=== PATIENT | female | born 1990 | race African-American/Black ===

== ENCOUNTER 2016-07-21 04:47 | Emergency (ER) | payer SELFPAY ==
[2016-07-21 04:56] VITALS: BP 124/66
--- NOTE | 2016-07-21 05:15 | EDM.PDOC ---
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 She presented to the emergency department this morning because of increased pain. She states that she has an appointment to have the cyst drained. - Related Data Allergies/ADRs: Allergies Allergy/AdvReac Type Severity Reaction Status Date / Time latex Allergy Hives Verified 07/21/16 04:50 Latex, Natural Rubber Allergy Hives Verified 07/21/16 04:50 Home Meds: Home Meds Metronidazole [IJD: metroNIDAZOLE] 1 tab PO TID 07/21/16 [History] Past Medical History - Past Health History Medical/Surgical History: Denies Medical/Surgical History Other OB/BYN History: Bartolin's Cyst - Infectious Disease History Infectious Disease History: Reports: Chicken pox Social & Family History - Family History Family Medical History: Noncontributory - Tobacco Use Smoking Status *Q: Never Smoker Second Hand Smoke Exposure: No - Caffeine Use Caffeine Use: Reports: Soda Caffeine Use Comment: 2drinks/day - Recreational Drug Use Recreational Drug Use: No ED ROS GENERAL - Review of Systems Review Of Systems: See Below Constitutional: Reports: other (She has significant pain and discomfort.). Denies: fever (He is uncertain if she has had a fever.) Respiratory: Denies: shortness of breath, sputum Cardiovascular: Denies: Chest pain, Edema GI/Abdominal: Denies: Abdominal pain, Vomiting ED EXAM, RENAL/ - Physical Exam Exam: See Below General Appearance: alert, no apparent distress Respiratory/Chest: no respiratory distress (Female) Exam: Other (On examination of the external genitalia I note that there is a firmness of the right labium. This is extensive covering a large part of the right labium with swelling and tenderness and likely some deeper fluctuance.) Course - Vital Signs Last Recorded V/S: Last Vital Signs Temp 98.2 F 07/21/16 04:51 Pulse 102 H 07/21/16 04:51 Resp 19 07/21/16 04:51 BP 124/66 07/21/16 04:51 Pulse Ox 98 07/21/16 04:51 Departure - Departure Time of Disposition: 05:16 Disposition: Home, Self-Care 01 Clinical Impression: Labial abscess Forms: ED Department Discharge Additional Instructions: Percocet 10 325 one by mouth now and a prescription for Percocet 10/325 one every 4 hours when necessary pain dispensed 20. Staff in the emergency department will attempt to help her get into see Dr. Dominguez sometime later today. I told the patient I do not feel that this suspected abscess is amenable to easy intervention in the emergency department.
[2016-07-21] MEDS ORDERED: Acetaminophen/oxyCODONE 325-10 MG Tab PO ONE (05:18)
== END 2016-07-21 05:30 | disposition home or self-care (01) ==
LOC: MW.ED 04:47 → MERGE 04:47 → MW.ED 05:30
DX: N76.4 Abscess of vulva (principal); Z91.040 Latex allergy status; Z79.899 Other long term (current) drug therapy
CPT/HCPCS: 99283; A9270

== ENCOUNTER 2016-11-01 08:47 | Emergency (ER) | payer SELFPAY ==
--- NOTE | 2016-11-01 10:17 | EDM.PDOC ---
ED HPI GENERAL MEDICAL PROBLEM - General Chief Complaint: Abdominal Pain Stated Complaint: STOMACH PAIN Time Seen by Provider: 11/01/16 09:39 Source of Information: Reports: Patient History Limitations: Reports: No Limitations - History of Present Illness INITIAL COMMENTS - FREE TEXT/NARRATIVE: History of present illness: [] Patient states that she's had swelling and "movement" in her left abdomen for a few weeks, last night she developed pain in her left abdomen into her vagina. She denies any discharge or bleeding at this time. She's had several tests and ultrasounds of her abdomen in the women[facility] clinic and states she is not . She is not convinced of this is she states she is in TV shows these tests can be negative but she can still be . Review of systems: As per history of present illness and below otherwise all systems reviewed and negative. Past medical history: As per history of present illness and as reviewed below otherwise noncontributory. Surgical history: As per history of present illness and as reviewed below otherwise noncontributory. Social history: No reported history of drug or alcohol abuse. Family history: As per history of present illness and as reviewed below otherwise noncontributory. Physical exam: General: Well developed, well nourished in NAD HEENT: Atraumatic, normocephalic, pupils reactive, negative for conjunctival pallor or scleral icterus, mucous membranes moist, throat clear, neck supple, nontender, trachea midline. Lungs: Clear to auscultation, breath sounds equal bilaterally, chest nontender. Heart: S1S2, regular, negative for clicks, rubs, or JVD. Abdomen: Soft bowel sounds Soft, nondistended, left lower quadrant tenderness no rebound or guarding. Do not appreciate any masses in her left abdomen however patient notes that she feels one palpable under the skin is moving. Negative for masses or hepatosplenomegaly. Negative for costovertebral tenderness. Pelvis: Stable nontender. Genitourinary: Deferred. Rectal: Deferred. Extremities: Atraumatic, negative for cords or calf pain. Neurovascular unremarkable. Neuro: Awake, alert, oriented. Cranial nerves II through XII unremarkable. Cerebellum unremarkable. Motor and sensory unremarkable throughout. Exam nonfocal. Diagnostics: [] UA shows UTI hCG is negative Therapeutics: [] Impression: [] UTI Plan: [] Bactrim twice a day for 10 days followup with PMD return if symptoms worsen or change Definitive disposition and diagnosis as appropriate pending reevaluation and review of above. abdomen Pain Score (Numeric/FACES): 9 - Related Data Allergies Allergy/AdvReac Type Severity Reaction Status Date / Time influenza virus vaccine, Allergy Cannot Verified 11/01/16 09:40 specific Remember [Influenza Virus Vacc,Specific] latex Allergy Hives Verified 11/01/16 09:40 Latex, Natural Rubber Allergy Other Verified 11/01/16 09:40 Home Meds: Home Meds Control Pill 1 tab PO DAILY 10/29/14 [History] Amoxicillin/Clavulanate K [Augmentin 875 MG/125 MG] 02/27/16 [History] Hydrocodone/Acetaminophen [[place] 5-325] 02/27/16 [History] Metronidazole [IJD: metroNIDAZOLE] 1 tab PO TID 07/21/16 [History] Sulfamethoxazole/Trimethoprim [Bactrim Ds Tablet] 1 each PO BID #20 tablet 11/01 [Rx] Past Medical History - Past Health History Medical/Surgical History: Denies Medical/Surgical History HEENT History: Reports: None Cardiovascular History: Reports: None Respiratory History: Reports: None Gastrointestinal History: Reports: None Genitourinary History: Reports: None 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: Other OB/BYN History: Bartolin's Cyst Musculoskeletal History: Reports: None Neurological History: Reports: None Psychiatric History: Reports: None Endocrine/Metabolic History: Reports: None Hematologic History: Reports: Anemia, Blood Transfusion(s) Immunologic History: Reports: None Oncologic (Cancer) History: Reports: None Dermatologic History: Reports: None - Infectious Disease History Infectious Disease History: Reports: Chicken Pox, None - Past Surgical History Head Surgeries/Procedures: Reports: None HEENT Surgical History: Reports: None Cardiovascular Surgical History: Reports: None Female Surgical History: Reports: None Oncologic Surgical History: Reports: None Social & Family History - Family History Family Medical History: Noncontributory - Tobacco Use Smoking Status *Q: Never Smoker Second Hand Smoke Exposure: No - Caffeine Use Caffeine Use: Reports: Coffee Caffeine Use Comment: 3 cups daily - Alcohol Use Days Per Week of Alcohol Use: 0 - Recreational Drug Use Recreational Drug Use: No ED ROS GENERAL - Review of Systems Review Of Systems: See Below (See history of present illness) ED EXAM, GI/ABD - Physical Exam Exam: See Below (See history of present illness) Course - Vital Signs Last Recorded V/S: Last Vital Signs Temp 37.0 C 11/01/16 09:05 Pulse 94 11/01/16 09:05 Resp 16 11/01/16 09:05 BP 126/73 11/01/16 09:05 Pulse Ox 98 11/01/16 09:05 - Orders/Labs/Meds Orders: Active Orders 24 hr Category Date Time Status CHLAMYDIA TRACHOMATIS/GC AMPLF Stat Lab 11/01/16 10:18 Ordered COMPREHENSIVE METABOLIC PN,CMP [CHEM] Stat Lab 11/01/16 10:25 Received LIPASE [CHEM] Stat Lab 11/01/16 10:25 Received Labs: Laboratory Tests 11/01/16 11/01/16 11/01/16 Range/Units 09:38 09:45 10:25 WBC 10.24 (4.0-11.0) K/uL RBC 5.31 (4.30-5.90) M/uL Hgb 10.2 L (12.0-16.0) g/dL Hct 34.8 L (36.0-46.0) % MCV 65.5 L (80.0-98.0) fL MCH 19.2 L (27.0-32.0) pg MCHC 29.3 L (31.0-37.0) g/dL RDW Std Deviation 48.3 (28.0-62.0) fl RDW Coeff of Danitza 21 H (11.0-15.0) % Plt Count 301 (150-400) K/uL MPV 9.20 (7.40-12.00) fL Neut % (Auto) 66.4 (48.0-80.0) % Lymph % (Auto) 20.1 (16.0-40.0) % [place] % (Auto) 9.7 (0.0-15.0) % Eos % (Auto) 3.6 (0.0-7.0) % Baso % (Auto) 0.2 (0.0-1.5) % Neut # (Auto) 6.8 H (1.4-5.7) K/uL Lymph # (Auto) 2.1 (0.6-2.4) K/uL [place] # (Auto) 1.0 H (0.0-0.8) K/uL Eos # (Auto) 0.4 (0.0-0.7) K/uL Baso # (Auto) 0.0 (0.0-0.1) K/uL Nucleated RBC % 0.0 /100WBC Nucleated RBCs # 0 K/uL Urine Color YELLOW Urine Appearance SLT CLOUDY Urine pH 5.5 (5.0-8.0) Ur Specific [place] 1.010 (1.001-1.035) Urine Protein NEGATIVE (NEGATIVE) mg/dL Urine Glucose (UA) NEGATIVE (NEGATIVE) mg/dL Urine Ketones NEGATIVE (NEGATIVE) mg/dL Urine Occult Blood TRACE-INTACT (NEGATIVE) Urine Nitrite NEGATIVE (NEGATIVE) Urine Bilirubin NEGATIVE (NEGATIVE) Urine Urobilinogen 0.2 (<2.0) EU/dL Ur Leukocyte Esterase MODERATE (NEGATIVE) Urine RBC 1-3 (0-2/HPF) Urine WBC 50-60 (0-5/HPF) Ur Epithelial Cells OCCASIONAL (NONE-FEW) Urine Bacteria FEW (NEGATIVE) Urine Mucus LIGHT (NONE-MOD) Urine HCG, Qual NEGATIVE (NEGATIVE) Departure - Departure Time of Disposition: 10:58 Disposition: Home, Self-Care 01 Condition: good Clinical Impression: UTI (urinary tract infection) Qualifiers: Urinary tract infection type: site unspecified Hematuria presence: without hematuria Qualified Code(s): N39.0 - Urinary tract infection, site not specified - Discharge Information Prescriptions: Sulfamethoxazole/Trimethoprim [Bactrim Ds Tablet] 1 each PO BID #20 tablet Forms: ED Department Discharge Additional Instructions: The following information is given to patients seen in the emergency department who are being discharged to home. This information is to outline your options for follow-up care. We provide all patients seen in our emergency department with a follow-up referral. The need for follow-up, as well as the timing and circumstances, are variable depending upon the specifics of your emergency department visit. If you don't have a primary care physician on staff, we will provide you with a referral. We always advise you to contact your personal physician following an emergency department visit to inform them of the circumstance of the visit and for follow-up with them and/or the need for any referrals to a consulting specialist. The emergency department will also refer you to a specialist when appropriate. This referral assures that you have the opportunity for follow-up care with a specialist. All of these measure are taken in an effort to provide you with optimal care, which includes your follow-up. Under all circumstances we always encourage you to contact your private physician who remains a resource for coordinating your care. When calling for follow-up care, please make the office aware that this follow-up is from your recent emergency room visit. If for any reason you are refused follow-up, please contact the [facility] Emergency Department at and asked to speak to the emergency department charge nurse. Bactrim twice a day for 10 days, increase fluids, Tylenol Motrin for pain, followup with primary care physician return to ER if any symptoms change or worsen [facility] [address] [place] [id number] - My Orders Last 24 Hours: My Active Orders 11/01/16 10:18 CHLAMYDIA TRACHOMATIS/GC AMPLF Stat 11/01/16 10:25 COMPREHENSIVE METABOLIC PN,CMP [CHEM] Stat LIPASE [CHEM] Stat - Assessment/Plan Last 24 Hours: My Active Orders 11/01/16 10:18 CHLAMYDIA TRACHOMATIS/GC AMPLF Stat 11/01/16 10:25 COMPREHENSIVE METABOLIC PN,CMP [CHEM] Stat LIPASE [CHEM] Stat
[2016-11-01 11:00] LABS: CHLORIDE,CL 108 mmol/L (98-110); SODIUM,NA 137 mmol/L (136-146)
[2016-11-01 11:15] VITALS: BP 119/75
== END 2016-11-01 11:10 | disposition home or self-care (01) ==
LOC: MW.ED 08:47
DX: N39.0 Urinary tract infection, site not specified (principal); Z79.899 Other long term (current) drug therapy; Z88.7 Allergy status to serum and vaccine; Z91.040 Latex allergy status; Z86.2 Personal history of diseases of the blood and blood-forming organs and certain disorders involving the immune mechanism
CPT/HCPCS: 36415; 80053; 81001; 81025; 83690; 85025; 87491; 87591; 99283

== ENCOUNTER 2017-04-11 09:18 | Emergency (ER) | payer OTHER ==
[2017-04-11] MEDS ORDERED: Sodium Chloride 0.9% 1,000 ML IV ONE (09:33)
[2017-04-11] MEDS ORDERED: Ondansetron 4 MG/2 ML SDV IVPUSH ONE (09:33)
[2017-04-11] MEDS ORDERED: Ketorolac 30 MG/ML SDV IVPUSH ONE (09:33)
--- NOTE | 2017-04-11 09:33 | EDM.PDOC ---
ED HPI GENERAL MEDICAL PROBLEM - General Chief Complaint: General Stated Complaint: MIGRAINE Time Seen by Provider: 04/11/17 09:33 Source of Information: Reports: Patient - History of Present Illness INITIAL COMMENTS - FREE TEXT/NARRATIVE: HISTORY AND PHYSICAL: History of present illness: [Patient presents with 4 out of 10 right unilateral headache with mild nausea she has had a couple episodes of vomiting and light sensitivity She notes that she "had 4-5 watery stools per day on Wednesday she has not taken anything for this remained any diet adjustment No fever or chills sweats no chest pain shortness breath dizziness or palpitation no urine symptoms ] Review of systems: As per history of present illness and below otherwise all systems reviewed and negative. Past medical history: As per history of present illness and as reviewed below otherwise noncontributory. Surgical history: As per history of present illness and as reviewed below otherwise noncontributory. Social history: No reported history of drug or alcohol abuse. Family history: As per history of present illness and as reviewed below otherwise noncontributory. Physical exam: HEENT: Atraumatic, normocephalic, pupils reactive, negative for conjunctival pallor or scleral icterus, mucous membranes moist, throat clear, neck supple, nontender, trachea midline. Dry lips and tongue Lungs: Clear to auscultation, breath sounds equal bilaterally, chest nontender. Heart: S1S2, regular, negative for clicks, rubs, or JVD. Abdomen: Soft, nondistended, nontender. Negative for masses or hepatosplenomegaly. Negative for costovertebral tenderness. Pelvis: Stable nontender. Genitourinary: Deferred. Rectal: Deferred. Extremities: Atraumatic, negative for cords or calf pain. Neurovascular unremarkable. Neuro: Awake, alert, oriented. Cranial nerves II through XII unremarkable. Cerebellum unremarkable. Motor and sensory unremarkable throughout. Exam nonfocal. Diagnostics: [CBC CMP UA hCG Influenza A ] Therapeutics: [1 L normal saline bolus Zofran 8 mg IV Toradol 30 mg IV ] Impression: UTI [Headache Mild dehydration Nausea vomiting diarrhea Viral syndrome] Definitive disposition and diagnosis as appropriate pending reevaluation and review of above. headache Pain Score (Numeric/FACES): 9 - Related Data Allergies Allergy/AdvReac Type Severity Reaction Status Date / Time influenza virus vaccine, Allergy Cannot Verified 04/11/17 09:32 specific Remember [Influenza Virus Vacc,Specific] latex Allergy Hives Verified 04/11/17 09:32 Latex, Natural Rubber Allergy Other Verified 04/11/17 09:32 Home Meds: Home Meds medroxyPROGESTERone [Provera] 10 mg PO DAILY 04/11/17 [History] metFORMIN HCl [Metformin HCl ER] 500 mg PO DAILY 04/11/17 [History] Past Medical History - Past Health History Medical/Surgical History: Denies Medical/Surgical History HEENT History: Reports: None Cardiovascular History: Reports: None Respiratory History: Reports: None Gastrointestinal History: Reports: None Genitourinary History: Reports: None 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 OB/BYN History: Bartolin's Cyst Musculoskeletal History: Reports: None Neurological History: Reports: None Psychiatric History: Reports: None Endocrine/Metabolic History: Reports: None Hematologic History: Reports: Anemia, Blood Transfusion(s) Immunologic History: Reports: None Oncologic (Cancer) History: Reports: None Dermatologic History: Reports: None - Infectious Disease History Infectious Disease History: Reports: Chicken Pox, None - Past Surgical History Head Surgeries/Procedures: Reports: None HEENT Surgical History: Reports: None Cardiovascular Surgical History: Reports: None Female Surgical History: Reports: None Oncologic Surgical History: Reports: None Social & Family History - Family History Family Medical History: Noncontributory - Tobacco Use Smoking Status *Q: Never Smoker Second Hand Smoke Exposure: No - Caffeine Use Caffeine Use: Reports: Coffee Caffeine Use Comment: 3 cups daily - Alcohol Use Days Per Week of Alcohol Use: 0 - Recreational Drug Use Recreational Drug Use: No ED ROS GENERAL - Review of Systems Review Of Systems: ROS reveals no pertinent complaints other than HPI. ED EXAM, GENERAL - Physical Exam Exam: See Below Course - Vital Signs Last Recorded V/S: Last Vital Signs Temp 97.8 F 04/11/17 09:33 Pulse 86 04/11/17 09:33 Resp 18 04/11/17 09:33 BP 135/58 L 04/11/17 09:33 Pulse Ox 97 04/11/17 09:33 - Orders/Labs/Meds Orders: Active Orders 24 hr Category Date Time Status CULTURE URINE [RM] Stat Lab 04/11/17 10:31 Uncollected Sodium Chloride 0.9% [Normal Saline] 1,000 ml Med 04/11/17 09:33 Active IV STAT Medication Orders Sodium Chloride (Normal Saline) 1,000 mls @ 999 mls/hr IV STAT ONE Stop: 04/11/17 10:33 Last Admin: 04/11/17 09:52 Dose: 999 mls/hr Labs: Laboratory Tests 04/11/17 04/11/17 04/11/17 Range/Units 09:35 09:35 09:49 WBC 7.38 (4.0-11.0) K/uL RBC 4.91 (4.30-5.90) M/uL Hgb 11.2 L (12.0-16.0) g/dL Hct 36.6 (36.0-46.0) % MCV 74.5 L (80.0-98.0) fL MCH 22.8 L (27.0-32.0) pg MCHC 30.6 L (31.0-37.0) g/dL RDW Std Deviation 50.6 (28.0-62.0) fl RDW Coeff of Danitza 19 H (11.0-15.0) % Plt Count 277 (150-400) K/uL MPV 9.50 (7.40-12.00) fL Neut % (Auto) 53.7 (48.0-80.0) % Lymph % (Auto) 29.4 (16.0-40.0) % [place] % (Auto) 8.9 (0.0-15.0) % Eos % (Auto) 7.6 H (0.0-7.0) % Baso % (Auto) 0.4 (0.0-1.5) % Neut # (Auto) 4.0 (1.4-5.7) K/uL Lymph # (Auto) 2.2 (0.6-2.4) K/uL [place] # (Auto) 0.7 (0.0-0.8) K/uL Eos # (Auto) 0.6 (0.0-0.7) K/uL Baso # (Auto) 0.0 (0.0-0.1) K/uL Nucleated RBC % 0.0 /100WBC Nucleated RBCs # 0 K/uL Sodium (136-146) mmol/L Potassium (3.5-5.1) mmol/L Chloride (98-110) mmol/L Carbon Dioxide (21-31) mmol/L BUN (6.0-23.0) mg/dL Creatinine (0.6-1.5) mg/dL Est Cr Clr Drug Dosing mL/min Estimated GFR (MDRD) ml/min Glucose (60-110) mg/dL Calcium (8.8-10.8) mg/dL Total Bilirubin (0.1-1.5) mg/dL AST (5-40) IU/L ALT (8-54) IU/L Alkaline Phosphatase (40-150) Total Protein (6.0-8.0) g/dL Albumin (3.5-5.0) g/dL Globulin (2.0-3.5) g/dL Albumin/Globulin Ratio (1.3-2.8) Urine Color YELLOW Urine Appearance CLOUDY Urine pH 8.5 H (5.0-8.0) Ur Specific [place] 1.010 (1.001-1.035) Urine Protein NEGATIVE (NEGATIVE) mg/dL Urine Glucose (UA) NEGATIVE (NEGATIVE) mg/dL Urine Ketones NEGATIVE (NEGATIVE) mg/dL Urine Occult Blood SMALL H (NEGATIVE) Urine Nitrite NEGATIVE (NEGATIVE) Urine Bilirubin NEGATIVE (NEGATIVE) Urine Urobilinogen 0.2 (<2.0) EU/dL Ur Leukocyte Esterase LARGE (NEGATIVE) Urine RBC 2-3 (0-2/HPF) Urine WBC 5-8 (0-5/HPF) Ur Epithelial Cells FEW (NONE-FEW) Amorphous Sediment LIGHT (NEGATIVE) Urine Bacteria 1+ H (NEGATIVE) Urine Mucus NOT SEEN (NONE-MOD) Urine HCG, Qual NEGATIVE (NEGATIVE) 04/11/17 Range/Units 09:49 WBC (4.0-11.0) K/uL RBC (4.30-5.90) M/uL Hgb (12.0-16.0) g/dL Hct (36.0-46.0) % MCV (80.0-98.0) fL MCH (27.0-32.0) pg MCHC (31.0-37.0) g/dL RDW Std Deviation (28.0-62.0) fl RDW Coeff of Danitza (11.0-15.0) % Plt Count (150-400) K/uL MPV (7.40-12.00) fL Neut % (Auto) (48.0-80.0) % Lymph % (Auto) (16.0-40.0) % [place] % (Auto) (0.0-15.0) % Eos % (Auto) (0.0-7.0) % Baso % (Auto) (0.0-1.5) % Neut # (Auto) (1.4-5.7) K/uL Lymph # (Auto) (0.6-2.4) K/uL [place] # (Auto) (0.0-0.8) K/uL Eos # (Auto) (0.0-0.7) K/uL Baso # (Auto) (0.0-0.1) K/uL Nucleated RBC % /100WBC Nucleated RBCs # K/uL Sodium 141 (136-146) mmol/L Potassium 3.5 (3.5-5.1) mmol/L Chloride 110 (98-110) mmol/L Carbon Dioxide 22 (21-31) mmol/L BUN 9 (6.0-23.0) mg/dL Creatinine 0.7 (0.6-1.5) mg/dL Est Cr Clr Drug Dosing 121.78 mL/min Estimated GFR (MDRD) > 60.0 ml/min Glucose 122 H (60-110) mg/dL Calcium 8.9 (8.8-10.8) mg/dL Total Bilirubin 0.3 (0.1-1.5) mg/dL AST 17 (5-40) IU/L ALT 14 (8-54) IU/L Alkaline Phosphatase 67 (40-150) Total Protein 7.7 (6.0-8.0) g/dL Albumin 4.2 (3.5-5.0) g/dL Globulin 3.5 (2.0-3.5) g/dL Albumin/Globulin Ratio 1.2 L (1.3-2.8) Urine Color Urine Appearance Urine pH (5.0-8.0) Ur Specific [place] (1.001-1.035) Urine Protein (NEGATIVE) mg/dL Urine Glucose (UA) (NEGATIVE) mg/dL Urine Ketones (NEGATIVE) mg/dL Urine Occult Blood (NEGATIVE) Urine Nitrite (NEGATIVE) Urine Bilirubin (NEGATIVE) Urine Urobilinogen (<2.0) EU/dL Ur Leukocyte Esterase (NEGATIVE) Urine RBC (0-2/HPF) Urine WBC (0-5/HPF) Ur Epithelial Cells (NONE-FEW) Amorphous Sediment (NEGATIVE) Urine Bacteria (NEGATIVE) Urine Mucus (NONE-MOD) Urine HCG, Qual (NEGATIVE) Meds: Medications Generic Name Dose Route Start Last Admin Trade Name Freq PRN Reason Stop Dose Admin Sodium Chloride 1,000 mls @ 999 mls/hr 04/11/17 09:33 04/11/17 09:52 Normal Saline IV 04/11/17 10:33 999 mls/hr STAT ONE Administration Discontinued Medications Generic Name Dose Route Start Last Admin Trade Name Freq PRN Reason Stop Dose Admin Ketorolac Tromethamine 30 mg 04/11/17 09:33 04/11/17 09:51 Toradol IVPUSH 04/11/17 09:34 30 mg ONETIME ONE Administration Ondansetron HCl 8 mg 04/11/17 09:33 04/11/17 09:51 Zofran IVPUSH 04/11/17 09:34 8 mg ONETIME ONE Administration Departure - Departure Time of Disposition: 10:32 Disposition: Home, Self-Care 01 Condition: Good Clinical Impression: Viral syndrome UTI (urinary tract infection) Qualifiers: Urinary tract infection type: site unspecified Hematuria presence: without hematuria Qualified Code(s): N39.0 - Urinary tract infection, site not specified - Discharge Information Referrals: Ansley Martinez EXPEDITION SUPERVISOR [Primary Care Provider] - Forms: ED Department Discharge Additional Instructions: Medication as prescribed Return if symptoms persist or worsen Follow-up with primary care in 2 weeks Plan clear liquid diet for 24 hours, Pepto-Bismol with each loose stool, this will to turn her stool plaque this is due to the medication and Pepto-Bismol. Medication for nausea also provided You do have a urinary tract infection your provided and antibiotic to treat this [facility] - [facility] [address] [place] [id number] The following information is given to patients seen in the emergency department who are being discharged to home. This information is to outline your options for follow-up care. We provide all patients seen in our emergency department with a follow-up referral. The need for follow-up, as well as the timing and circumstances, are variable depending upon the specifics of your emergency department visit. If you don't have a primary care physician on staff, we will provide you with a referral. We always advise you to contact your personal physician following an emergency department visit to inform them of the circumstance of the visit and for follow-up with them and/or the need for any referrals to a consulting specialist. The emergency department will also refer you to a specialist when appropriate. This referral assures that you have the opportunity for follow-up care with a specialist. All of these measure are taken in an effort to provide you with optimal care, which includes your follow-up. Under all circumstances we always encourage you to contact your private physician who remains a resource for coordinating your care. When calling for follow-up care, please make the office aware that this follow-up is from your recent emergency room visit. If for any reason you are refused follow-up, please contact the [facility] emergency department at and asked to speak to the emergency department charge nurse. - My Orders Last 24 Hours: My Active Orders 04/11/17 09:33 Sodium Chloride 0.9% [Normal Saline] 1,000 ml IV STAT 04/11/17 10:31 CULTURE URINE [RM] Stat - Assessment/Plan Last 24 Hours: My Active Orders 04/11/17 09:33 Sodium Chloride 0.9% [Normal Saline] 1,000 ml IV STAT 04/11/17 10:31 CULTURE URINE [RM] Stat
[2017-04-11 10:22] LABS: CHLORIDE,CL 110 mmol/L (98-110); SODIUM,NA 141 mmol/L (136-146)
[2017-04-11 11:11] VITALS: BP 114/73
== END 2017-04-11 11:09 | disposition home or self-care (01) ==
LOC: MW.ED 09:18
DX: E86.0 Dehydration (principal); N39.0 Urinary tract infection, site not specified; B34.9 Viral infection, unspecified; Z91.040 Latex allergy status; Z79.84 Long term (current) use of oral hypoglycemic drugs; Z79.899 Other long term (current) drug therapy
CPT/HCPCS: 36415; 80053; 81001; 81025; 85025; 87086; 87804; 96361; 96374; 96375; 99284; J1885; J2405; J7040

== ENCOUNTER 2017-07-15 09:59 | Day surgery (SDC) | payer OTHER ==
[~2017-07-15 09:59] MED LIST: Lactated Ringers 1,000 ML IV SCH
--- NOTE | 2017-07-15 10:33 | PCM.PREANE ---
Preanesthetic Assessment - Anesthesia/Transfusion/Family Hx Anesthesia History: No Prior Anesthesia Family History of Anesthesia Reaction: No Transfusion History: Prior Transfusion Without Reaction Intubation History: Unknown - Review of Systems General: No Symptoms Pulmonary: No Symptoms Cardiovascular: No Symptoms Gastrointestinal: No Symptoms Neurological: No Symptoms Other: Reports: None - Physical Assessment Height: 1.7 m Weight: 104.78 kg ASA Class: 2 Mental Status: Alert & Oriented x3 Airway Class: Mallampati = 2 Dentition: Reports: Normal Dentition Thyro-Mental Finger Breadths: 3 Mouth Opening Finger Breadths: 3 ROM/Head Extension: Full Lungs: Clear to Auscultation, Normal Respiratory Effort Cardiovascular: Regular Rate, Regular Rhythm - Lab Values: Laboratory Last Values Urine HCG, Qual NEGATIVE (NEGATIVE) 07/15/17 10:00 - Allergies Allergies/Adverse Reactions: Allergies Allergy/AdvReac Type Severity Reaction Status Date / Time influenza virus vaccine, Allergy Cannot Verified 04/11/17 09:32 specific Remember [Influenza Virus Vacc,Specific] latex Allergy Hives Verified 04/11/17 09:32 Latex, Natural Rubber Allergy Other Verified 04/11/17 09:32 - Blood Blood Available: No - Anesthesia Plan Pre-Op Medication Ordered: None - Acknowledgements Anesthesia Type Planned: General Anesthesia Pt an Appropriate Candidate for the Planned Anesthesia: Yes Alternatives and Risks of Anesthesia Discussed w Pt/Guardian: Yes Pt/Guardian Understands and Agrees with Anesthesia Plan: Yes PreAnesthesia Questionnaire - Past Health History Medical/Surgical History: Denies Medical/Surgical History HEENT History: Reports: None Cardiovascular History: Reports: None Respiratory History: Reports: None Gastrointestinal History: Reports: None Genitourinary History: Reports: None DIABETOLOGIST History: Reports: Polycystic Ovaries, Other (See Below) (Bartholin's gland abscess) Other OB/BYN History: takes metformin for PCOS Musculoskeletal History: Reports: Back Pain, Chronic Neurological History: Reports: None Psychiatric History: Reports: None Endocrine/Metabolic History: Reports: Obesity/BMI 30+ Hematologic History: Reports: Anemia Immunologic History: Reports: None Oncologic (Cancer) History: Reports: None Dermatologic History: Reports: None - Infectious Disease History Infectious Disease History: Reports: Chicken Pox, None - Past Surgical History Head Surgeries/Procedures: Reports: None HEENT Surgical History: Reports: None Cardiovascular Surgical History: Reports: None Female Surgical History: Reports: None Oncologic Surgical History: Reports: None Dermatological Surgical History: Reports: None - SUBSTANCE USE Smoking Status *Q: Never Smoker Second Hand Smoke Exposure: No Days Per Week of Alcohol Use: 0 Recreational Drug Use History: No - HOME MEDS Home Medications: Home Meds medroxyPROGESTERone [Provera] 10 mg PO DAILY 04/11/17 [History] metFORMIN HCl [Metformin HCl ER] 500 mg PO DAILY 04/11/17 [History] - CURRENT (IN HOUSE) MEDS Current Meds: Current Medications Lactated Ringer's (Ringers, Lactated) 1,000 mls @ 125 mls/hr IV ASDIRECTED [facility] Last Admin: 07/15/17 10:29 Dose: 125 mls/hr
[2017-07-15] MEDS ORDERED: Propofol 200 MG/20 ML SDV ONE (10:37)
[2017-07-15] MEDS ORDERED: Lidocaine 2% 5 ML SDV ONE (10:37)
[2017-07-15] MEDS ORDERED: fentaNYL 100 MCG/2 ML SDV ONE (10:37)
[2017-07-15] MEDS ORDERED: Midazolam 1 MG/ML 2 ML SDV ONE (10:38)
[2017-07-15] MEDS ORDERED: Ketorolac 30 MG/ML SDV IVPUSH PRN (11:55)
[2017-07-15] MEDS ORDERED: Acetaminophen/oxyCODONE 325-5 MG Tab PO PRN ×2 (11:55)
[2017-07-15] MEDS ORDERED: Promethazine 25 MG/ML SDV IM PRN (11:55)
[2017-07-15] MEDS ORDERED: Ketorolac 30 MG/ML SDV IVPUSH ONE (11:55)
[2017-07-15] MEDS ORDERED: Morphine 4 MG/ML Syringe IVPUSH PRN (11:55)
[2017-07-15] MEDS ORDERED: Morphine 2 MG/ML Syringe IVPUSH PRN (11:55)
[2017-07-15] MEDS ORDERED: Ondansetron 4 MG/2 ML SDV IVPUSH PRN (11:55)
--- NOTE | 2017-07-15 12:01 | PCM.OPNOTE ---
- General Post-Op/Procedure Note Date of Surgery/Procedure: 07/15/17 Operative Procedure(s): I&D L bartholin cyst Pre Op Diagnosis: L bartholin absess Post-Op Diagnosis: Same Anesthesia Technique: General LMA Primary Surgeon: Lucas Dominguez Speedometer Inspector: Aarti SantanaL in mLs: 50 Complications: None Condition: Good
--- NOTE | 2017-07-15 12:02 | PCM.DCSUM1 ---
Discharge Summary - Discharge Data Discharge Date: 07/15/17 Discharge Disposition: Home, Self-Care 01 Condition: Good - Patient Summary/Data Operative Procedure(s) Performed: I&D L bartholin cyst - Patient Instructions Diet: Usual Diet as Tolerated Activity: As Tolerated Driving: Do Not Drive Showering/Bathing: May Shower Notify Provider of: Fever, Increased Pain - Discharge Plan Home Medications: Home Meds medroxyPROGESTERone [Provera] 10 mg PO DAILY 04/11/17 [History] metFORMIN HCl [Metformin HCl ER] 500 mg PO DAILY 04/11/17 [History] - General Info Date of Service: 07/15/17 Functional Status: Reports: Pain Controlled - Review of Systems General: Reports: No Symptoms HEENT: Reports: No Symptoms Pulmonary: Reports: No Symptoms Cardiovascular: Reports: No Symptoms Gastrointestinal: Reports: No Symptoms Genitourinary: Reports: No Symptoms Musculoskeletal: Reports: No Symptoms Skin: Reports: No Symptoms Neurological: Reports: No Symptoms Psychiatric: Reports: No Symptoms - Patient Data Vitals - Most Recent: Last Vital Signs Temp 36.9 C 07/15/17 10:00 Pulse 76 07/15/17 10:00 Resp 14 07/15/17 10:00 BP 118/67 07/15/17 10:00 Pulse Ox 100 07/15/17 10:00 Weight - Most Recent: 104.78 kg Lab Results - Last 24 hrs: Laboratory Results - last 24 hr 07/15/17 Range/Units 10:00 Urine HCG, Qual NEGATIVE (NEGATIVE) Med Orders - Current: Current Medications Lactated Ringer's (Ringers, Lactated) 1,000 mls @ 125 mls/hr IV ASDIRECTED [facility] Last Admin: 07/15/17 10:29 Dose: 125 mls/hr Ketorolac Tromethamine (Toradol) 30 mg IVPUSH ONETIME ONE Stop: 07/15/17 11:56 Ketorolac Tromethamine (Toradol) 30 mg IVPUSH Q6H PRN PRN Reason: Pain (severe 7-10) Stop: 07/20/17 11:56 Morphine Sulfate (Morphine) 2 mg IVPUSH Q2H PRN PRN Reason: Pain (severe 7-10) Morphine Sulfate (Morphine) 4 mg IVPUSH Q2H PRN PRN Reason: Pain (severe 7-10) Ondansetron HCl (Zofran) 4 mg IVPUSH Q6H PRN PRN Reason: Nausea/Vomiting Oxycodone/Acetaminophen (Percocet 325-5 Mg) 1 tab PO Q4H PRN PRN Reason: Pain (moderate 4-6) Oxycodone/Acetaminophen (Percocet 325-5 Mg) 2 tab PO Q4H PRN PRN Reason: Pain (moderate 4-6) Promethazine HCl (Phenergan) 25 mg IM Q6H PRN PRN Reason: Nausea/Vomiting Discontinued Medications Fentanyl (Sublimaze) Confirm Administered Dose 200 mcg .ROUTE .STK-MED ONE Stop: 07/15/17 10:38 Lidocaine (Xylocaine-Mpf 2%) Confirm Administered Dose 10 ml .ROUTE .STK-MED ONE Stop: 07/15/17 10:38 Midazolam HCl (Versed 1 Mg/Ml) Confirm Administered Dose 2 mg .ROUTE .STK-MED ONE Stop: 07/15/17 10:39 Propofol (Diprivan 20 Ml) Confirm Administered Dose 400 mg .ROUTE .STK-MED ONE Stop: 07/15/17 10:38 - Exam General: Reports: Alert, Oriented HEENT: Reports: Pupils Equal, Pupils Reactive, EOMI, Mucous Membr. Moist/[place]ne[place] Neck: Reports: Supple Lungs: Reports: Clear to Auscultation, Normal Respiratory Effort Cardiovascular: Reports: Regular Rate, Regular Rhythm GI/Abdominal Exam: Normal Bowel Sounds, Soft, Non-Tender, No Organomegaly, No Distention, No Abnormal Bruit, No Mass, Pelvis Stable (Female) Exam: Normal External Exam, Normal Speculum Exam, Normal Bimanual Exam Rectal (Female) Exam: Normal Exam, Normal Rectal Tone Back Exam: Reports: Normal Inspection, Full Range of Motion Extremities: Normal Inspection, Normal Range of Motion, Non-Tender, No Pedal Edema, Normal Capillary Refill Skin: Reports: Warm, Dry, Intact Wound/Incisions: Reports: Healing Well Neurological: Reports: No New Focal Deficit Psy/Mental Status: Reports: Alert, Normal Affect, Normal Mood *Q Meaningful Use (DIS) - VTE *Q VTE Criteria *Q: - Stroke *Q Stroke Criteria *Q: - AMI *Q AMI Criteria *Q:
[2017-07-15] MEDS ORDERED: fentaNYL 100 MCG/2 ML SDV IVPUSH PRN (12:09)
--- NOTE | 2017-07-15 13:00 | PCM48HPAN ---
Post Anesthesia Note - EVALUATION WITHIN 48HRS OF ANESTHETIC Vital Signs in Normal Range: Yes Patient Participated in Evaluation: Yes Respiratory Function Stable: Yes Airway Patent: Yes Cardiovascular Function Stable: Yes Hydration Status Stable: Yes Pain Control Satisfactory: Yes Nausea and Vomiting Control Satisfactory: Yes Mental Status Recovered: Yes Resp Rate: 20 - COMMENTS/OBSERVATIONS Free Text/Narrative:: no anesthesia problems
[2017-07-15 13:54] VITALS: BP 122/78
--- NOTE | 2017-07-16 07:33 | OR ---
SURGEON: Lucas Dominguez MD DATE OF PROCEDURE: 07/15/2017 PREOPERATIVE DIAGNOSIS: Recurrent left Bartholin's cyst abscess. POSTOPERATIVE DIAGNOSIS: Recurrent left Bartholin's cyst abscess. OPERATION PERFORMED: I and D of the left Bartholin abscess and marsupialization of the gland. BOOMSWING OPERATOR: MEGAN Rodríguez. ANESTHESIA: General LMA, Krish Peguero and Dr. Santillan. ESTIMATED BLOOD LOSS: 50 mL. COMPLICATIONS: None. FINDING: Left Bartholin abscess. INDICATIONS FOR SURGERY: This patient has had recurrent left Bartholin abscess. She is admitted for I and D and marsupialization. She previously tried Word catheter and I and D in the office. PROCEDURE IN DETAIL: The patient was brought to the OR, properly identified. After adequate level of anesthesia, patient placed in lithotomy position. Time-out was taken and patient was prepped and draped in sterile fashion as usual. Then using 11 blade, an I and D of the left Bartholin gland was done. Copious amount of pus was evacuated from the gland and once this done, then washing and cleaning the gland with saline. After that top of the gland was unroofed and then using 3-0 Vicryl in continuous interlocking suture around the edge for hemostasis and to keep the gland open, marsupialization achieved. Once this was done, the procedure ended. The instrument and sponge count was correct. The patient tolerated the procedure well, went to recovery room in stable general condition. CHAPINCITO / ALBERTA /[id number]
== END 2017-07-15 13:20 | disposition home or self-care (01) ==
LOC: MW.SDS 09:59
PROVIDERS: ATTEND Obstetrics & Gynecology
DX: N75.1 Abscess of Bartholin's gland (principal); E66.01 Morbid (severe) obesity due to excess calories; E63.9 Nutritional deficiency, unspecified; E28.2 Polycystic ovarian syndrome; F55.2 Abuse of laxatives; N92.6 Irregular menstruation, unspecified; L68.0 Hirsutism; N85.01 Benign endometrial hyperplasia; K59.00 Constipation, unspecified; N76.0 Acute vaginitis; B96.89 Other specified bacterial agents as the cause of diseases classified elsewhere; R71.8 Other abnormality of red blood cells; Z68.36 Body mass index [BMI] 36.0-36.9, adult; Z79.899 Other long term (current) drug therapy; Z79.84 Long term (current) use of oral hypoglycemic drugs; Z88.7 Allergy status to serum and vaccine; Z91.040 Latex allergy status
CPT/HCPCS: 56420; 56440; 81025; J2250; J3010; J7120; 00940; J2704